=== PATIENT | female | born 1960 | race Caucasian/White ===

== ENCOUNTER 2016-08-17 13:55 | Emergency (ER) | payer OTHER ==
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
[2016-08-17 16:20] VITALS: BP 102/75
== END 2016-08-17 16:17 | disposition home or self-care (01) ==
LOC: ED 13:55
DX: T54.2X1A Toxic effect of corrosive acids and acid-like substances, accidental (unintentional), initial encounter (principal); T26.91XA Corrosion of right eye and adnexa, part unspecified, initial encounter; Y92.59 Other trade areas as the place of occurrence of the external cause; Z88.2 Allergy status to sulfonamides; Z88.1 Allergy status to other antibiotic agents; Z88.8 Allergy status to other drugs, medicaments and biological substances
CPT/HCPCS: 99281